=== PATIENT | female | born 1995 | race Caucasian/White ===

== ENCOUNTER 2016-11-01 08:00 | Inpatient (IN) ==
[2016-11-01] MEDS ORDERED: Famotidine 20 MG/2 ML VIAL IVP PRN (08:27)
[2016-11-01] MEDS ORDERED: Naloxone 0.4 MG/ML INJ IVP PRN (08:27)
[2016-11-01] MEDS ORDERED: Metoclopramide 10 MG/2 ML VIAL IVP PRN (08:27)
[2016-11-01] MEDS ORDERED: Ringers Solution, Lactated 1,000 ML IVC SCH (08:30)
[2016-11-01] MEDS ORDERED: *HR* Nalbuphine 20 MG/ML AMPUL IVP PRN (08:36)
[2016-11-01] MEDS ORDERED: miSOPROStol 100 MCG TABLET PO SCH (09:00)
[2016-11-01 10:41] LABS: Basophils % 0.2 %; Eosinophils % 0.5 %; Hematocrit 30.6 % (35.3-44.9); Immature Granulocytes % 0.5 % (0-4); Lymphocytes # 1.1 K/mcL (0.6-4.6); Lymphocytes % 19.5 %; Mean Corpuscular HGB Conc 32.7 g/dL (31.6-35.5); Mean Corpuscular Hemoglobin 25.7 pg (28.0-33.3); Mean Platelet Volume 10.9 fL (9.4-12.4); Monocytes # 0.5 K/mcL (0.0-1.3); Monocytes % 8.7 %; Neutrophils # 3.9 K/mcL (1.6-8.9); Platelet Count 132 K/mcL (140-400); Red Blood Count 3.89 M/mcL (3.82-4.97); Red Cell Distribution Width 15.7 % (11.5-14.5); Segmented Neutrophils % 70.6 %
[2016-11-01 10:52] LABS: Mean Corpuscular Volume 78.7 fL (83.0-100.0)
--- NOTE | 2016-11-01 15:57 | OB Labor Progress Note ---
Date of Encounter: 11/01/16 Time of Encounter: 15:57 Labor Progress Note - Vital Signs Vital Signs: Pt c/o uc's getting stronger 4 hrs after Cytotec. - Cervix Cervix: 3/80/-2 - Heart Tones Heart Tones: RNST - [place]: uc's q 3-4 min, mild - Interventions Interventions: AROM clear - Plan Plan: Expect
--- NOTE | 2016-11-01 16:03 | OB/GYN History & Physical ---
Date of Encounter: 11/01/16 Time of Encounter: 16:00 Assessment and Plan (1) 40 weeks gestation of Current visit: No Status: Acute Pt presents at 40 weeks EGA with c/o uc's and is here for induction. Plan cytotec. GBBS is negative. History of Present Illness Chief complaint: Here for induction HPI: Ms. Beard is a 20 year old female female at 39 weeks EGA presents with c /o uc's. On arrival she reports irregular uc's, no vb or lof. Past Med Surg Social Fam HX - Past Medical History Source: patient Medical history: no medical history Psychiatric history: no psych history - Past Surgical History Surgical History: non-contributory, other - Social History Smoking Status: Never smoker Smokeless Tobacco Status: No Alcohol use: none Drug use: none - Family History Mother Family Member Ethnicity: Non- Living Status: Still Living Hx Family Cardiac Disorders: No Hx Family Respiratory Disorders: No Hx Family Cancer: No Hx Family GI Disorders: No Hx Family Genitourinary Disorders: No Hx Family Endocrine Disorder: No Hx Family Musculoskeletal Disorders: No Hx Family Neuromuscular Disorders: No Hx Family Neurologic Disorders: No Hx Family HEENT Disorders: No Hx Family Autoimmune Disorders: No Hx Family Reproductive Disorders: No Hx Family Psychosocial Disorders: No Hx Family Medical Disorders: No Obstetrical History - Pregnancies : 2 Para: 1 Medications and Allergies One Tablet 1 tab PO DAILY 10/19/15 [History] Ferrous Sulfate [Ferrous Sulfate] 1 tab PO DAILY 11/01/16 [History] Allergies No Known Allergies Allergy (Verified 10/19/15 22:02) Exam - Constitutional Constitutional: well nourished - HEENT HEENT: EOMI, PERRL - Neck Neck exam: full ROM - Lungs Respiratory exam: CTAB - Cardiovascular Cardiovascular exam: RRR - Abdomen Abdomen: Present: bowel sounds normal - Extremities Extremities exam: full ROM Deep Tendon Reflex Grade: 2+ Normal - Cervix Dilation: 3 Effacement: 70 Station: -2 Results Result Diagrams: 11/01/16 10:29 Abnormal lab results Hgb 10.0 g/dL (11.5-15.4) L 11/01/16 10:29 Hct 30.6 % (35.3-44.9) L 11/01/16 10:29 MCV 78.7 fL (83.0-100.0) L 11/01/16 10:29 MCH 25.7 pg (28.0-33.3) L 11/01/16 10:29 RDW 15.7 % (11.5-14.5) H 11/01/16 10:29 Plt Count 132 K/mcL (140-400) L 11/01/16 10:29 All other labs normal. - VTE Reasons for not Prescribing Prophylaxis: Treatment not Indicated - Low risk for VTE
[2016-11-01] MEDS ORDERED: Bupivacaine-MPF 0.25% 10 ML VIAL EP ONE (18:27)
[2016-11-01] MEDS ORDERED: *HR* FentaNYL (PF) 100 MCG/2 ML VIAL EP ONE (18:27)
[2016-11-01] MEDS ORDERED: Epidural Premix (fent/bupiv) 110 ML EP SCH (18:30)
[2016-11-01] MEDS ORDERED: Bupivacaine-MPF 0.25% 10 ML VIAL ONE (18:32)
[2016-11-01] MEDS ORDERED: *HR* FentaNYL (PF) 100 MCG/2 ML VIAL ONE (18:32)
[2016-11-01] MEDS ORDERED: Epidural Premix (fent/bupiv) 110 ML EP ONE (18:33)
--- NOTE | 2016-11-01 19:24 | Anesthesia Evaluation PreOp ---
Date of Encounter: 11/01/16 Time of Encounter: 12:30 - Past History Planned Operation: epidural Cardiac History: Denies any Significant Hx Pulmonary History: Denies Any Significant HX EMR TRAINER History: Denies Any Significant HX Other Medical History: GERD Anesthesia History: No Prior Anesthetic Complications (1 vaginal delivery, tumor removed behind left ear, hemangioma left chest removal) : Yes Test: Positive Alcohol Use: none Drug use: none Medications and Allergies One Tablet 1 tab PO DAILY 10/19/15 [History] Ferrous Sulfate [Ferrous Sulfate] 1 tab PO DAILY 11/01/16 [History] Allergies No Known Allergies Allergy (Verified 10/19/15 22:02) - Meds/Allergy Pre-op Review Medications Reviewed: Yes Allergies Reviewed: Yes Beta Blockers on Current Med List: No Anesthesia Results - Labs 11/01/16 10:29 Anesthesia Exam 3 Vital Signs Time 1230 BP 122/66 Pulse 90 Resp 16 O2 Sat Height: 71 Weight: 104 NPO (# of Hours): clears Pain Scale: 6 Pain Scale Used: Numeric (1 - 10) - HEENT Pupil (Motor): Pupils equal Mallampati: II Teeth: Normal Oral Opening: Greater than 3 - EMR TRAINER LOC: Oriented EMR TRAINER Motor: Normal RUE, Normal LUE, Normal RLE, Normal LLE, Normal Face EMR TRAINER Sensory: Normal: RUE, LUE, RLE, LLE, Face - Cardiac Rhythm: Regular Murmur: None JVD: No Carotid Bruit: No - Pulmonary Breath Sounds: bilateral Clear Respiratory Effort: Symmetrical Anesthesia Assess/Plan ASA Score: 2 Modified [place] Scale for Level of Consciousness: Cooperative, oriented, and tranquil Anesthetic Plan: Regional Autologous Blood: No Monitoring Plan: Standard Monitors Recovery Plan: Other
--- NOTE | 2016-11-01 19:32 | Anesthesia Procedures ---
Date of Encounter: 11/01/16 Time of Encounter: 18:42 Procedures: Anesthesia - Epidural/Spinal Patient ID/Chart reviewed: Yes Patient examined: Yes OB Eval: Gestational age: 39weeks 5 days OB Eval: : 2 OB Eval: Hx Para: 1 OB Eval: Dilated at (cm): 4 OB Eval: Contractions: Non-stressed pattern Consent Obtained: Yes Supplemental Oxygen: None/Room Air Site Prep: Aseptic Technique, Sterile prep and drape, Povidone-Iodine 1% Patient position: upright Local Anesthetic: Lidocaine 1% Amount of Local Anesthetic used: 3 Touhy Needle Gauge: 18 Touhy Needle Depth (cm): 6 Catheter Depth at Skin (cm): 11 Test Dose (1.5% Lido + Epi): Volume given (mls): 3 Test Dose Result: Negative Loading Dose: 0.25% Marcaine (mls): 6 Loading Dose: Fentanyl (mcg): 100 Loading Dose: Other: 4 ml saline Loading Dose Administered: Thru Catheter Infusion Med: 0.125% Bupivacaine w/ 2 mcg/ml Fentanyl Infusion Rate (mls/hr): [address]: Tegaderm, Tape Interspace Used: L3-L4 Loss of Resistance (CAROLA): Yes (air) Blood: No CSF: No Paresthesia: No Procedure: 3 Vital Signs Time start 1842 cath 1855 1902 bolus 1916 finish BP 121/82 137/77 129/78 110/62 Pulse 71 99 80 61 Resp 16 16 16 16 O2 Sat 98 98 98 98 heart tones 120 throughout patient tolerated procedure well
--- NOTE | 2016-11-01 21:19 | OB Labor Progress Note ---
Date of Encounter: 11/01/16 Time of Encounter: 21:18 Labor Progress Note - Subjective Subjective: UC strong but tolerable with epidural in place - Cervix Cervix: 5/80/-2 - Heart Tones Heart Tones: 130s-140s - [place]: q2min - Interventions Interventions: epidural in place - Plan Plan: spontaneous vaginal delivery
--- NOTE | 2016-11-01 21:50 | OB Labor Progress Note ---
Date of Encounter: 11/01/16 Time of Encounter: 21:48 Labor Progress Note - Subjective Subjective: strong frequent contractions - Cervix Cervix: 10/100/0 - Heart Tones Heart Tones: 130s - [place]: every 1-2min - Interventions Interventions: epidural in place - Plan Plan: normal spontaneous vaginal delivery
[2016-11-01] MEDS ORDERED: Oxytocin 20 units/ LR 1000 mL 20 UNIT/1,000 ML BAG IVC ONE ×3 (22:03→23:18)
--- NOTE | 2016-11-01 22:32 | OB/GYN Procedure Note ---
Delivery - Delivery Date: 11/01/16 Provider: Garry Arauz Intrapartum events: none Delivery induction: misoprostol Delivery monitor: external FHT, external uterine Anesthesia: epidural Estimated Blood Loss: 350 - (s) Infant A Infant Delivery Date: 11/01/16 Infant Delivery Time: 21:59 Presentation: vertex Position: DANIELLE Route of delivery: Gender: Female Viability: Viable Pounds: 7 Ounces: 11 at 1 minute: 9 at 5 mins: 9 Shoulder Dystocia: not encountered Specimens collected: cord blood Placenta: spontaneous Cord: 3 umbilical vessels, other (Cord around neck and body), delivered through nuchal - Repair Episiotomy: none Laceration Description: Perineal - 2nd Degree - Complications Delivery complications: none - Disposition Mom disposition: stable in LDR [place] disposition: stable in LDR (Pt s/p without complications. Delivery was through nuchal cord and cord around body. Second degree laceration was repaird under local with 3-0 vicryl)
[2016-11-01] MEDS ORDERED: Measles/Mumps/Rubella Vacc 0.5 ML VIAL SQ PRN (23:18)
[2016-11-01] MEDS ORDERED: Rho Immune Globulin 1,500 UNIT SYRINGE IM PRN (23:18)
[2016-11-01] MEDS ORDERED: Oxytocin 20 units/ LR 1000 mL 20 UNIT/1,000 ML BAG IV SCH (23:18)
[2016-11-01] MEDS ORDERED: Acetaminophen 325 MG TABLET PO PRN (23:18)
[2016-11-02 03:23] LABS: Basophils % 0.1 %; Eosinophils % 0.3 %; Hematocrit 29.1 % (35.3-44.9); Hemoglobin 9.4 g/dL (11.5-15.4); Immature Granulocytes % 0.4 % (0-4); Lymphocytes % 10.2 %; Mean Corpuscular HGB Conc 32.3 g/dL (31.6-35.5); Mean Corpuscular Hemoglobin 25.3 pg (28.0-33.3); Mean Corpuscular Volume 78.4 fL (83.0-100.0); Mean Platelet Volume 10.9 fL (9.4-12.4); Monocytes % 9.6 %; Neutrophils # 7.9 K/mcL (1.6-8.9); Platelet Count 118 K/mcL (140-400); Red Blood Count 3.71 M/mcL (3.82-4.97); Red Cell Distribution Width 15.6 % (11.5-14.5); Segmented Neutrophils % 79.4 %
[2016-11-02] MEDS: Prenatal Vit/FA 1 EACH TABLET PO SCH (08:00)
--- NOTE | 2016-11-02 09:45 | OB/GYN Progress Note ---
Date of Encounter: 11/02/16 Time of Encounter: 09:43 - Assessment and Plan (1) Vaginal delivery Current Visit: Yes Status: Acute Meeting milestone, continue to monitor, anticipate discharge to home PPD#2 (2) anemia Current Visit: Yes Status: Acute Iron daily. Subjective - Subjective Patient reports: appetite normal, voiding normally, pain well controlled [place]: doing well Objective - Latest Vital Signs Latest vital signs: Vital Signs Temp Pulse Resp BP Pulse Ox 11/02/16 08:19 98.1 F 75 16 111/66 96 11/02/16 03:10 98.2 F 88 16 120/72 97 11/02/16 01:40 97.9 F 81 16 114/66 97 11/02/16 00:40 97.9 F 65 12 119/73 97 Intake and Output 11/01/16 11/02/16 11/02/16 23:59 07:59 15:59 Intake Total 640 / 640 Output Total 1900 / 1900 800 / 800 Balance -1900 / -1900 -160 / -160 Intake: Oral 640 / 640 Output: Urine 1900 / 1900 800 / 800 Other: Meal Breakfast Percent of Meal Consumed 50% Weight 101.9 kg Patient Weight 11/02/16 23:59 Weight 101.9 kg - Exam Lungs: left: normal Chest: Normal S1, Normal S2 Extremities: Present: normal Abdomen: Present: normal appearance Uterus: Present: normal, firm Uterus Position: At Umbilicus - Labs Labs: Laboratory Results - last 24 hr 11/01/16 11/01/16 11/01/16 10:07 10:07 10:29 WBC TNP 5.5 RBC TNP 3.89 Hgb TNP 10.0 L Hct TNP 30.6 L MCV TNP 78.7 L MCH TNP 25.7 L MCHC TNP 32.7 RDW TNP 15.7 H Plt Count TNP 132 L MPV TNP 10.9 Immature Gran % TNP 0.5 Seg Neutrophils % TNP 70.6 Lymphocytes % TNP 19.5 Monocytes % TNP 8.7 Eosinophils % TNP 0.5 Basophils % TNP 0.2 Neutrophils # SEMICONDUCTOR WAFERS MARKER 3.9 Lymphocytes # SEMICONDUCTOR WAFERS MARKER 1.1 Monocytes # SEMICONDUCTOR WAFERS MARKER 0.5 Eosinophils # SEMICONDUCTOR WAFERS MARKER 0.0 Basophils # SEMICONDUCTOR WAFERS MARKER 0.0 Specimen Rejected Labelling 11/02/16 03:16 WBC 9.9 D RBC 3.71 L Hgb 9.4 L Hct 29.1 L MCV 78.4 L MCH 25.3 L MCHC 32.3 RDW 15.6 H Plt Count 118 L MPV 10.9 Immature Gran % 0.4 Seg Neutrophils % 79.4 Lymphocytes % 10.2 Monocytes % 9.6 Eosinophils % 0.3 Basophils % 0.1 Neutrophils # 7.9 Lymphocytes # 1.0 Monocytes # 1.0 Eosinophils # 0.0 Basophils # 0.0 Specimen Rejected
[2016-11-02] MEDS: Ibuprofen 600 MG TABLET PO PRN (19:39)
[2016-11-03] MEDS: Prenatal Vit/FA 1 EACH TABLET PO SCH (07:45)
[2016-11-03] MEDS: Ibuprofen 600 MG TABLET PO PRN (07:45)
[2016-11-03 09:24] VITALS: BP 133/80
--- NOTE | 2016-11-03 09:30 | Discharge Summary ---
Date of Encounter: 11/03/16 Time of Encounter: 09:28 - Discharge Diagnosis (1) Vaginal delivery Priority: Primary Status: Acute Comments: Meeting all milestones. Desires discharge. (2) anemia Priority: Secondary Status: Acute Comments: Will discharge on iron - Discharge Medications Prescriptions: Ibuprofen [Motrin] 600 mg PO Q6HR PRN #60 tablet PRN Reason: Cramping Docusate [Colace] 100 mg PO BID #60 capsule Ferrous Sulfate 325 mg PO DAILY #60 tablet Home Medications: One Tablet 1 tab PO DAILY 10/19/15 [History] Ferrous Sulfate 1 tab PO DAILY 11/01/16 [History] Acetaminophen [Tylenol] 650 mg PO Q6HR PRN #0 tablet 11/03/16 [Rx] Docusate [Colace] 100 mg PO BID #60 capsule 11/03/16 [Rx] Ferrous Sulfate 325 mg PO DAILY #60 tablet 11/03/16 [Rx] Ibuprofen [Motrin] 600 mg PO Q6HR PRN #60 tablet 11/03/16 [Rx] Vit/FA 1 each PO DAILY tablet 11/03/16 [Rx] Allergies/Adverse Reactions: Allergies No Known Allergies Allergy (Verified 10/19/15 22:02) Data Procedures and tests throughout hospitalization: Laboratory Tests 11/01/16 11/01/16 11/01/16 10:07 10:07 10:29 WBC TNP 5.5 RBC TNP 3.89 Hgb TNP 10.0 L Hct TNP 30.6 L MCV TNP 78.7 L MCH TNP 25.7 L MCHC TNP 32.7 RDW TNP 15.7 H Plt Count TNP 132 L MPV TNP 10.9 Immature Gran % TNP 0.5 Seg Neutrophils % TNP 70.6 Lymphocytes % TNP 19.5 Monocytes % TNP 8.7 Eosinophils % TNP 0.5 Basophils % TNP 0.2 Neutrophils # BUCKET PUSHER 3.9 Lymphocytes # BUCKET PUSHER 1.1 Monocytes # BUCKET PUSHER 0.5 Eosinophils # BUCKET PUSHER 0.0 Basophils # BUCKET PUSHER 0.0 Specimen Rejected Labelling 11/02/16 03:16 WBC 9.9 D RBC 3.71 L Hgb 9.4 L Hct 29.1 L MCV 78.4 L MCH 25.3 L MCHC 32.3 RDW 15.6 H Plt Count 118 L MPV 10.9 Immature Gran % 0.4 Seg Neutrophils % 79.4 Lymphocytes % 10.2 Monocytes % 9.6 Eosinophils % 0.3 Basophils % 0.1 Neutrophils # 7.9 Lymphocytes # 1.0 Monocytes # 1.0 Eosinophils # 0.0 Basophils # 0.0 Specimen Rejected Date of admission: 11/01/16 08:07 Primary care physician: DONOVAN FRENCH Consults: 11/01/16 23:18 Consult to Machine Chain Maker [CONS] Routine Comment: Vaginal delivery, consult needed Consult to A R Specialist [CONS] Routine Reason for SW Consult: teen Discharging clinician: Natali Wright Anticipated date of discharge: 11/03/16 - Patient Status Disposition: Home, Self-Care Condition: Good Functional capacity at discharge: independent ambulation - Discharge Instructions Follow Up With: GILLIAN,PCP [Primary Care Provider] - Garry Arauz MD [Partnered Physician] - - Diet and Activity Activity: resume usual activities as tolerated Diet: regular diet Hospital Course Reason for admission: induction of labor Delivery: Episiotomy: none Laceration: 2nd degree Other procedures: none complications: none Discharge diagnosis: IUP at term delivered baby: female Hospital course: Delivery - Delivery Date: 11/01/16 Provider: Garry Arauz Intrapartum events: none Delivery induction: misoprostol Delivery monitor: external FHT, external uterine Anesthesia: epidural Estimated Blood Loss: 350 - Infant (s) Infant A Delivery Date: 11/01/16 Delivery Time: 21:59 Presentation: vertex Position: DANIELLE Route of delivery: Gender: Female Viability: Viable Pounds: 7 Ounces: 11 at 1 minute: 9 at 5 mins: 9 Shoulder Dystocia: not encountered Specimens collected: cord blood Placenta: spontaneous Cord: 3 umbilical vessels, other (Cord around neck and body), delivered through nuchal - Repair Episiotomy: none Laceration Description: Perineal - 2nd Degree - Complications Delivery complications: none - Disposition Mom disposition: stable in LDR [place] disposition: stable in LDR (Pt s/p without complications. Delivery was through nuchal cord and cord around body. Second degree laceration was repaird under local with 3-0 vicryl) Time Attestation: Total time spent providing and/or coordinating discharge services: Time Spent: Less than 30 minutes Exam - Constitutional Vitals: Temp Pulse Resp BP Pulse Ox 97.7 F 75 16 133/80 98 11/03/16 08:40 11/03/16 08:40 11/03/16 08:40 11/03/16 08:40 11/03/16 08:40 General appearance IM: A&O X 3, no acute distress - Respiratory Respiratory exam: Present: CTAB. Absent: respiratory distress - Cardiovascular Cardiovascular exam IM: Present: RRR, +S1, +S2 - GI/Abdominal GI/Abdominal exam IM: soft - Uterine Tone: Firm Uterus Position: At Umbilicus - Extremities Exam Extremities exam IM: Present: normal inspection - Neurological Exam Neurological exam: normal gait, oriented X3 - Psychiatric Additional comments: reports good mood.
== END 2016-11-03 11:00 | disposition home or self-care (01) | DRG 560 ==
LOC: 1NENULAB 08:07 → 1NENUOBS 11-02 00:52
PROVIDERS: ADMIT Obstetrics & Gynecology; ATTEND Obstetrics & Gynecology